=== PATIENT | female | born 1980 | race Caucasian/White ===

== ENCOUNTER 2022-02-01 14:02 | Emergency (ER) | payer OTHER ==
[~2022-02-01] VITALS: Ht 160 cm; Wt 95.7 kg
[2022-02-01] MEDS ORDERED: SYNTHROID75 MCG PO (14:41)
== END 2022-02-01 22:37 | disposition home or self-care (01) ==
LOC: ER 14:02
DX: O20.8 Other hemorrhage in early pregnancy (principal); O34.11 Maternal care for benign tumor of corpus uteri, first trimester; O99.019 Anemia complicating pregnancy, unspecified trimester; Z3A.01 Less than 8 weeks gestation of pregnancy; D25.9 Leiomyoma of uterus, unspecified; Z88.6 Allergy status to analgesic agent; Z91.013 Allergy to seafood

== ENCOUNTER 2022-11-07 12:45 | Inpatient (IN) | payer OTHER ==
[~2022-11-07] VITALS: Ht 170.2 cm; Wt 77.1 kg
[~2022-11-07 12:45] MED LIST: SYNTHROID75 MCG PO
== END 2022-11-09 22:34 | disposition home or self-care (01) | DRG 812 ==
LOC: ER 12:45 → SEC-K 18:10 → MEDJ 18:10
PROVIDERS: ADMIT Internal Medicine; ATTEND Internal Medicine
PROC: 30233N1 Transfusion of Nonautologous Red Blood Cells into Peripheral Vein, Percutaneous Approach (ICD-10-PCS; principal; 2022-11-08)
DX: D50.0 Iron deficiency anemia secondary to blood loss (chronic) (principal); N93.8 Other specified abnormal uterine and vaginal bleeding; R53.1 Weakness

== ENCOUNTER 2023-10-02 11:49 | Inpatient (IN) | payer OTHER ==
[~2023-10-02] VITALS: Ht 160 cm; Wt 95.3 kg
[2023-10-02 15:30] LABS: HEMATOCRIT 24.6 % (36.0-45.00); MEAN CORPUSCULAR HGB CONC 29.7 g/dl (32.0-36.0); PLATELET COUNT 449 K/uL (150-450); RED BLOOD COUNT 4.29 M/uL (4.00-6.00)
[2023-10-02 15:39] LABS: HEMOGLOBIN 7.3 g/dL (12.0-15.00); MEAN CELL VOLUME 57.2 fL (80.00-100.00); RED CELL DISTRIBUTION WIDTH 20.9 % (11.5-14.5)
[2023-10-02 15:42] LABS: PARTIAL THROMBOPLASTIN TIME 27.1 SECONDS (22.0-34.0); PROTHROMBIN TIME 10.5 SECONDS (9.0-11.5)
[2023-10-02 15:48] LABS: ALBUMIN 3.9 gm/dL (3.4-5.0); BILIRUBIN TOTAL 0.36 mg/dL (0.3-1.2); CALCIUM 9.5 mg/dL (8.5-10.1); CREATININE SERUM 0.63 mg/dL (0.55-1.02); GFR 102.19; GLOBULINA 4.1 G/DL (2.4-3.5); POTASSIUM 3.46 mEq/L (3.5-5.1)
[2023-10-02 21:00] LABS: PH,URINE 5.5 (5.0-8.0); URINE APPEARANCE Clear; URINE BILIRRUBIN Negative (NEGATIVE); URINE BLOOD Negative; URINE COLOR Yellow; URINE GLUCOSE Negative (NEGATIVE); URINE LEUKOCYTE Negative; URINE NITRATE Negative; URINE PROTEIN Negative (NEGATIVE); URINE UROBILINOGEN 0.2 E.U./dl
[2023-10-02 21:01] LABS: URINE BACTERIA 837.7 uL (0.0-1933); URINE EPITHELIAL CELLS 23.9 uL (0.0-38.8); URINE RBC 3.5 uL (0.0-20.8)
[2023-10-04 06:21] LABS: HEMATOCRIT 30.2 % (36.0-45.00); MEAN CORPUSCULAR HGB CONC 30.8 g/dl (32.0-36.0); PLATELET COUNT 388 K/uL (150-450); RED BLOOD COUNT 4.73 M/uL (4.00-6.00); RED CELL DISTRIBUTION WIDTH 24.3 % (11.5-14.5)
[2023-10-04 06:56] LABS: MEAN CELL VOLUME 63.8 fL (80.00-100.00); MEAN CORPUSCULAR HEMOGLOBIN 19.6 pg (27.00-32.0)
[2023-10-04 06:57] LABS: HEMOGLOBIN 9.3 g/dL (12.0-15.00)
== END 2023-10-04 10:30 | disposition home or self-care (01) | DRG 812 ==
LOC: ER 11:50 → MEDI 19:09
PROVIDERS: General Practice; ADMIT Internal Medicine; ATTEND Internal Medicine
PROC: 30233N1 Transfusion of Nonautologous Red Blood Cells into Peripheral Vein, Percutaneous Approach (ICD-10-PCS; principal; 2023-10-03)
DX: D64.9 Anemia, unspecified (principal); N93.9 Abnormal uterine and vaginal bleeding, unspecified; D25.9 Leiomyoma of uterus, unspecified

== ENCOUNTER 2025-01-20 14:37 | Inpatient (IN) | payer OTHER ==
[~2025-01-20] VITALS: Ht 99.1 cm; Wt 102.1 kg
--- NOTE | 2025-01-20 16:22 | NUR ---
PACIENTE ALERTA Y ORIENTA X3 LA MISMA REFIERE TENER LA HEMOBLOBINA 6.9 .S/V ESTABLE DENTRO DE SUAREZ CONDICION.PACIENTE EN ESPRA DE EVALUACION MEDICA.
[2025-01-20] MEDS ORDERED: 0.9 % SODIUM CHLORIDE 1,000 ML IV SCH ×2 (17:00→20:45)
[2025-01-20 18:52] LABS: BASO % 0.6 % (0.1-1.2); EOS # 0.32 (0.04-0.54); EOS % 3.9 % (0.7-7.0); LYMPH # 2.43 (1.18-3.74); LYMPH % 29.5 % (19.3-53.1); MEAN CORPUSCULAR HEMOGLOBIN 15.7 pg (25.6-32.2); MONO # 0.44 (0.24-0.82); MONO % 5.3 % (4.7-12.5); NEUT # 4.95 (1.56-6.13); NEUT % 60.2 % (34.0-71.1); RED BLOOD COUNT 4.21 M/uL (3.93-5.22)
--- NOTE | 2025-01-20 18:57 | NUR ---
SE EDUCA A PTE SOBRE TX MEDICO, SE TANA MUESTRAS DE LABORATORIO UTILIZANDO MEDIDAS ASEPTICAS. SE COLCOA H/L FAREED DE EDEMA. SE COLOCA IV FLUIDS A PTE JULIUS ORDEN MEDICA. PTE EN ESPERA DE CONSULTA CON MEDICINA INTERNA.
[2025-01-20 19:02] LABS: HEMATOCRIT 23.9 % (34.1-44.9); HEMOGLOBIN 6.6 g/dL (11.2-15.7)
[2025-01-20 19:13] LABS: PARTIAL THROMBOPLASTIN TIME 25.4 SECONDS (22.0-34.0); PROTHROMBIN TIME 10.9 SECONDS (9.0-11.5)
[2025-01-20 19:16] LABS: URINE APPEARANCE Turbid; URINE BILIRRUBIN Small (NEGATIVE); URINE BLOOD Moderate; URINE COLOR Red; URINE GLUCOSE Negative (NEGATIVE); URINE KETONE Negative (NEGATIVE); URINE LEUKOCYTE Moderate; URINE NITRATE Positive; URINE UROBILINOGEN 0.2 E.U./dl
[2025-01-20 19:19] LABS: ALBUMIN 3.4 gm/dL (3.4-5.0); BILIRUBIN TOTAL 0.26 mg/dL (0.3-1.2); CREATININE SERUM 0.64 mg/dL (0.55-1.02); GFR 99.9; POTASSIUM 3.71 mEq/L (3.5-5.1); TOTAL PROTEIN 7.4 gm/dL (6.4-8.2)
[2025-01-20 19:20] LABS: URINE EPITHELIAL CELLS 19.6 uL (0.0-38.8); URINE WBC 906.4 uL (0.0-23.2)
--- NOTE | 2025-01-20 19:24 | NUR ---
SE REQUIZAN 3 UNIDADES DE PRBC A PTE JULIUS ORDEN MEDICA A LAS 7PM. SE ENVIAN TUBOS PILOTOS A LABORATORIO, PTE FIRMA AUTORIZACION DE TRANSFUSION.
[2025-01-20 19:29] LABS: PLATELET COUNT 496 K/uL (163-369)
[2025-01-20 19:46] LABS: PH,URINE 6.5 (5.0-8.0); URINE BACTERIA > 9821.5 uL (0.0-1933); URINE PROTEIN 100 (NEGATIVE); URINE RBC > 10558.9 uL (0.0-20.8)
[2025-01-20] MEDS ORDERED: FAMOTIDINE/PF 20 MG in 0.9 % SODIUM CHLORIDE 8 ML IV PUSH SCH (20:40)
[2025-01-20] MEDS ORDERED: ESTROGENS, CONJUGATED 25 MG VIAL IV ONE (20:45)
[2025-01-20] MEDS ORDERED: ACETAMINOPHEN 500 MG GEL..CAP PO PRN (20:45)
[2025-01-20] MEDS ORDERED: ONDANSETRON HCL 4 MG in 0.9 % SODIUM CHLORIDE 50 ML IV PRN (20:45)
[2025-01-21] MEDS ORDERED: FAMOTIDINE/PF 20 MG/2 ML VIAL ONE (02:54)
[2025-01-21] MEDS ORDERED: DIPHENHYDRAMINE HCL 50 MG/ML VIAL 1ML ONE ×2 (05:10→11:17)
[2025-01-21] MEDS ORDERED: METHYLPREDNISOLONE SOD SUCC 125 MG VIAL ONE (05:11)
[2025-01-21] MEDS ORDERED: FUROsemide 20 MG/2 ML VIAL IV SCH (05:15)
[2025-01-21] MEDS ORDERED: METHYLPREDNISOLONE SOD SUCC 125 MG VIAL IV ONE (05:15)
[2025-01-21] MEDS ORDERED: DIPHENHYDRAMINE HCL 50 MG/ML VIAL 1ML IV ONE (05:15)
[2025-01-21] MEDS ORDERED: LEVOTHYROXINE SODIUM 75 MCG TABLET PO SCH (06:00)
[2025-01-21] MEDS ORDERED: FUROsemide 20 MG/2 ML VIAL ONE (09:01)
[2025-01-21] MEDS ORDERED: DIPHENHYDRAMINE HCL 50 MG/ML VIAL 1ML IV STA (10:59)
[2025-01-21] MEDS ORDERED: METHYLPREDNISOLONE SOD SUCC 40 MG VIAL IV STA (11:00)
[2025-01-21] MEDS ORDERED: ACETAMINOPHEN 500 MG GEL..CAP PO ONE (11:18)
[2025-01-21] MEDS ORDERED: METHYLPREDNISOLONE SOD SUCC 40 MG VIAL ONE (11:18)
[2025-01-21 17:11] VITALS: BP 115/73; O2SAT 100
[2025-01-21 17:15] VITALS: O2SAT 94
[2025-01-21 21:00] VITALS: O2SAT 94
[2025-01-21] MEDS ORDERED: METHYLPREDNISOLONE SOD SUCC 40 MG VIAL IV SCH (21:15)
[2025-01-21] MEDS ORDERED: DIPHENHYDRAMINE HCL 50 MG/ML VIAL 1ML IV SCH (21:15)
[2025-01-22] VITALS (7 sets, daily range): BP systolic 116–125; BP diastolic 71–77; O2SAT 93–100
[2025-01-22 02:32] LABS: BASO % 0.1 % (0.1-1.2); HEMATOCRIT 31.1 % (34.1-44.9); LYMPH % 6.7 % (19.3-53.1); MEAN CORPUSCULAR HEMOGLOBIN 18.4 pg (25.6-32.2); MONO # 0.54 (0.24-0.82); MONO % 3.6 % (4.7-12.5); NEUT # 13.24 (1.56-6.13); NEUT % 89.1 % (34.0-71.1)
[2025-01-22 02:41] LABS: HEMOGLOBIN 9.2 g/dL (11.2-15.7); PLATELET COUNT 501 K/uL (163-369); RED CELL DISTRIBUTION WIDTH 26.5 % (11.6-14.4)
[2025-01-22] MEDS ORDERED: FAMOTIDINE/PF 20 MG/2 ML VIAL ONE (08:44)
[2025-01-22] MEDS ORDERED: ONDANSETRON HCL 2 MG/ML VIAL ONE (08:44)
[2025-01-22] MEDS ORDERED: TRIVORA-28 TAB1 EACH PO (09:28)
[2025-01-22] MEDS ORDERED: METHYLPREDNISOLONE SOD SUCC 40 MG VIAL IV PRN (09:45)
[2025-01-22] MEDS ORDERED: Cyanocobalamin/Mecobalamin 1 TAB.SL SL NR (10:45)
[2025-01-22] MEDS ORDERED: SOD FERRIC GLUC COMPLX/SUCROSE 62.5 MG/5 ML AMPUL IV SCH (12:00)
[2025-01-22] MEDS ORDERED: METHYLPREDNISOLONE SOD SUCC 125 MG VIAL IV SCH (12:00)
[2025-01-22] MEDS ORDERED: PANTOPRAZOLE SODIUM 40 MG TABLET.DR PO SCH (21:00)
[2025-01-23] VITALS (7 sets, daily range): BP systolic 132–137; BP diastolic 73–82; O2SAT 90–98
[2025-01-23] MEDS ORDERED: Cyanocobalamin/Mecobalamin 1 TAB.SL SL SCH (09:00)
[2025-01-23] MEDS ORDERED: FF) NORGESTREL-ETHINYL ESTRADIOL TAB PO SCH (09:00)
[2025-01-23 13:50] LABS: BASO % 0.1 % (0.1-1.2); HEMATOCRIT 35.8 % (34.1-44.9); HEMOGLOBIN 10.7 g/dL (11.2-15.7); LYMPH # 1.86 (1.18-3.74); LYMPH % 9.2 % (19.3-53.1); MEAN CORPUSCULAR HEMOGLOBIN 19.5 pg (25.6-32.2); MONO # 1.42 (0.24-0.82); NEUT # 16.76 (1.56-6.13); NEUT % 82.6 % (34.0-71.1); PLATELET COUNT 501 K/uL (163-369); RED BLOOD COUNT 5.48 M/uL (3.93-5.22)
[2025-01-23 13:51] LABS: RED CELL DISTRIBUTION WIDTH 28.6 % (11.6-14.4)
[2025-01-23 14:41] LABS: CALCIUM 9.5 mg/dL (8.5-10.1); CREATININE SERUM 0.67 mg/dL (0.55-1.02); GFR 94.76; MAGNESIUM 2.1 mg/dL (1.8-2.4); PHOSPHOROUS 3.1 mg/dL (2.5-4.9); POTASSIUM 4.48 mEq/L (3.5-5.1)
[2025-01-24] VITALS (9 sets, daily range): BP systolic 112–143; BP diastolic 64–87; O2SAT 90–96
[2025-01-24] MEDS ORDERED: EPOETIN ALFA-EPBX 10,000 UNIT/ML VIAL (Retacrit) SUBCUTANEO SCH (09:00)
[2025-01-24] MEDS ORDERED: METHYLPREDNISOLONE SOD SUCC 125 MG in 0.9 % SODIUM CHLORIDE 100 ML IV PRN (21:00)
[2025-01-25] VITALS: O2SAT 96
[2025-01-25 01:04] LABS: URINE APPEARANCE Clear; URINE BILIRRUBIN Negative (NEGATIVE); URINE BLOOD Moderate; URINE COLOR Yellow; URINE GLUCOSE Negative (NEGATIVE); URINE KETONE Negative (NEGATIVE); URINE LEUKOCYTE Negative; URINE NITRATE Negative; URINE PROTEIN Negative (NEGATIVE)
[2025-01-25 01:08] LABS: URINE BACTERIA 832.3 uL (0.0-1933); URINE EPITHELIAL CELLS 11.2 uL (0.0-38.8); URINE RBC 4.7 uL (0.0-20.8); URINE WBC 5.5 uL (0.0-23.2)
[2025-01-25 01:49] VITALS: BP 133/79; O2SAT 93
[2025-01-25 05:44] VITALS: O2SAT 94
[2025-01-25 07:50] LABS: ALBUMIN 3.4 gm/dL (3.4-5.0); BILIRUBIN TOTAL 0.43 mg/dL (0.3-1.2); CALCIUM 9.2 mg/dL (8.5-10.1); CREATININE SERUM 0.69 mg/dL (0.55-1.02); GFR 91.59; GLOBULINA 3.7 G/DL (2.4-3.5); MAGNESIUM 2.2 mg/dL (1.8-2.4); PHOSPHOROUS 3.9 mg/dL (2.5-4.9); POTASSIUM 4.39 mEq/L (3.5-5.1); TOTAL PROTEIN 7.1 gm/dL (6.4-8.2)
[2025-01-25 08:39] VITALS: BP 133/82; O2SAT 94
[2025-01-25 08:57] VITALS: O2SAT 95
[2025-01-25 12:19] VITALS: O2SAT 95
[2025-01-25 14:05] LABS: BASO % 0.1 % (0.1-1.2); EOS # 0.01 (0.04-0.54); EOS % 0.1 % (0.7-7.0); HEMATOCRIT 38.2 % (34.1-44.9); HEMOGLOBIN 11.5 g/dL (11.2-15.7); LYMPH # 3.97 (1.18-3.74); LYMPH % 24.3 % (19.3-53.1); MEAN CORPUSCULAR HEMOGLOBIN 20.2 pg (25.6-32.2); MONO # 1.29 (0.24-0.82); MONO % 7.9 % (4.7-12.5); NEUT # 10.82 (1.56-6.13); RED BLOOD COUNT 5.69 M/uL (3.93-5.22)
[2025-01-25 14:47] LABS: RED CELL DISTRIBUTION WIDTH 30.8 % (11.6-14.4)
[2025-01-25 14:49] LABS: PLATELET COUNT 449 K/uL (163-369)
[2025-01-25] MEDS ORDERED: INTEGRA PLUS C1 EACH PO (15:23)
[2025-01-25] MEDS ORDERED: SYNTHROID75 MCG PO (15:23)
[2025-01-26] MEDS ORDERED: FF) NORGESTREL-ETHINYL ESTRADIOL TAB PO SCH (09:00)
== END 2025-01-25 15:37 | disposition home or self-care (01) | DRG 812 ==
LOC: ER 14:37 → MEDJ 21:12 → SEC-K 21:12 → MEDI 01-21 11:32
PROVIDERS: General Practice; Internal Medicine; ADMIT Internal Medicine; ATTEND Internal Medicine
PROC: BU4CZZZ Ultrasonography of Uterus and Ovaries (ICD-10-PCS; principal; 2025-01-20)
PROC: 4A12X4Z Monitoring of Cardiac Electrical Activity, External Approach (ICD-10-PCS; 2025-01-21)
PROC: 30233N1 Transfusion of Nonautologous Red Blood Cells into Peripheral Vein, Percutaneous Approach (ICD-10-PCS; 2025-01-21)
DX: D64.9 Anemia, unspecified (principal); D25.1 Intramural leiomyoma of uterus; E03.9 Hypothyroidism, unspecified; N93.9 Abnormal uterine and vaginal bleeding, unspecified; D63.8 Anemia in other chronic diseases classified elsewhere

== ENCOUNTER 2025-04-15 11:15 | Inpatient (IN) | payer OTHER ==
[~2025-04-15] VITALS: Ht 91.4 cm; Wt 95.7 kg
[~2025-04-15 11:15] MED LIST changes: +INTEGRA PLUS C1 EACH PO; +TRIVORA-28 TAB1 EACH PO
[2025-04-15 12:50] LABS: INR 1.05
[2025-04-15 13:26] LABS: RH POSITIVE
[2025-04-17] MEDS ORDERED: POVIDONE-IODINE 118 ML BOTT TOP ONE (09:21)
[2025-04-17] MEDS ORDERED: CEFAZOLIN SODIUM 1,000 MG VIAL ONE ×2 (09:21→16:49)
[2025-04-17] MEDS ORDERED: METRONIDAZOLE/SODIUM CHLORIDE 500 MG/100 ML PIGGYBACK IV ONE (09:21)
[2025-04-17] MEDS ORDERED: CHLORHEXIDINE GLUCONATE 120 ML BOTTLE TOP ONE (09:22)
[2025-04-17] MEDS ORDERED: THROMBIN,HU/FIBRINOGEN/CALCIUM 10 ML SYRINGE TOP ONE (11:27)
[2025-04-17] MEDS ORDERED: SUGAMMADEX SODIUM 200 MG/2 ML VIAL IV ONE (11:39)
[2025-04-17] MEDS ORDERED: OxyCODONE HCL 5 MG TABLET (ROXICODONE) PO PRN (12:00)
[2025-04-17] MEDS ORDERED: ACETAMINOPHEN 500 MG GEL..CAP PO SCH (12:00)
[2025-04-17] MEDS ORDERED: RINGERS SOLUTION,LACTATED 1,000 ML IV SCH (12:00)
[2025-04-17] MEDS ORDERED: MORPHINE SULFATE 4 MG/ML CARTRIDGE IV PRN (12:00)
[2025-04-17] MEDS ORDERED: MORPHINE SULFATE 4 MG/ML VIAL IV ONE ×2 (13:45→14:30)
[2025-04-17 15:13] LABS: BASO % 0.3 % (0.1-1.2); EOS # 0.01 (0.04-0.54); EOS % 0.1 % (0.7-7.0); LYMPH # 1.09 (1.18-3.74); LYMPH % 7.3 % (19.3-53.1); MEAN PLATELET VOLUME 9.10 fl (9.4-12.4); MONO # 0.64 (0.24-0.82); MONO % 4.3 % (4.7-12.5); NEUT # 13.17 (1.56-6.13); NEUT % 87.5 % (34.0-71.1); RED CELL DISTRIBUTION WIDTH 13.2 % (11.6-14.4)
[2025-04-17 15:33] LABS: BUN CREA RATIO 15.0 (7.0-25.0); CREATININE SERUM 0.48 mg/dL (0.55-1.02); GFR 139.23; GLUCOSE FASTING 131.0 mg/dL (65-100); OSMOLALITY SERUM 279.0 MOSM/KG (275-295)
[2025-04-17] MEDS ORDERED: GABAPENTIN 300 MG CAPSULE PO ONE (16:48)
[2025-04-17] MEDS ORDERED: METOCLOPRAMIDE HCL 5 MG/ML VIAL ONE (16:49)
[2025-04-17] MEDS ORDERED: ACETAMINOPHEN 500 MG GEL..CAP PO ONE (16:50)
[2025-04-17] MEDS ORDERED: METOCLOPRAMIDE HCL 5 MG/ML VIAL IV SCH (17:00)
[2025-04-17] MEDS ORDERED: GABAPENTIN 300 MG CAPSULE PO SCH (17:00)
[2025-04-17] MEDS ORDERED: CEFAZOLIN SODIUM 1,000 MG VIAL IV SCH (17:00)
[2025-04-17 19:34] VITALS: BP 112/76; O2SAT 98
[2025-04-17] MEDS ORDERED: FAMOTIDINE/PF 20 MG/2 ML VIAL IV PUSH SCH (21:00)
[2025-04-18 00:25] VITALS: BP 110/72; O2SAT 99
[2025-04-18 01:26] LABS: BASO % 0.2 % (0.1-1.2); EOS # 0.01 (0.04-0.54); EOS % 0.1 % (0.7-7.0); LYMPH # 1.53 (1.18-3.74); LYMPH % 14.8 % (19.3-53.1); MEAN PLATELET VOLUME 9.00 fl (9.4-12.4); MONO # 0.72 (0.24-0.82); MONO % 7.0 % (4.7-12.5); NEUT # 8.03 (1.56-6.13); NEUT % 77.6 % (34.0-71.1); RED CELL DISTRIBUTION WIDTH 13.1 % (11.6-14.4)
[2025-04-18 01:58] LABS: BUN CREA RATIO 17.0 (7.0-25.0); CREATININE SERUM 0.36 mg/dL (0.55-1.02); GFR 194.06; GLUCOSE FASTING 93.0 mg/dL (65-100); OSMOLALITY SERUM 277.0 MOSM/KG (275-295)
[2025-04-18 08:46] VITALS: BP 125/77
[2025-04-18] MEDS ORDERED: ENOXAPARIN SODIUM 40 MG/0.4 ML SYRINGE SUBCUTANEO SCH (09:00)
[2025-04-18 16:22] VITALS: BP 95/61; O2SAT 100
[2025-04-19 00:02] VITALS: BP 96/60; O2SAT 95
[2025-04-19 08:01] VITALS: BP 112/70; O2SAT 95
[2025-04-19] MEDS ORDERED: DOCUSATE SODIUM 100MG CAP PO SCH (09:02)
[2025-04-19] MEDS ORDERED: SIMETHICONE 125 MG CAPSULE PO SCH (09:03)
[2025-04-19] MEDS ORDERED: OxyCODONE HCL 5 MG TABLET (ROXICODONE) PO PRN (13:00)
[2025-04-19 17:58] VITALS: BP 104/71
[2025-04-20] VITALS: BP 117/76
[2025-04-20] MEDS ORDERED: LEVOTHYROXINE SODIUM 75 MCG TABLET PO SCH (06:00)
[2025-04-20 08:30] VITALS: BP 113/72; O2SAT 97
[2025-04-20] MEDS ORDERED: POLYETHYLENE GLYCOL 3350 17 GM BLIST.PACK PO SCH (12:00)
[2025-04-20 16:00] VITALS: BP 110/71; O2SAT 100
== END 2025-04-20 20:22 | disposition home or self-care (01) | DRG 743 ==
LOC: O/R 04-17 06:15 → SURH 04-17 11:15 → OB/GYN 04-17 15:24
PROVIDERS: Obstetrics & Gynecology; Surgery; ADMIT Obstetrics & Gynecology Gynecologic Oncology; ATTEND Obstetrics & Gynecology Gynecologic Oncology
PROC: 0UT00ZZ Resection of Right Ovary, Open Approach (ICD-10-PCS; 2025-04-17)
PROC: 0DNW0ZZ Release Peritoneum, Open Approach (ICD-10-PCS; 2025-04-17)
PROC: 0TN70ZZ Release Left Ureter, Open Approach (ICD-10-PCS; 2025-04-17)
PROC: 0TN60ZZ Release Right Ureter, Open Approach (ICD-10-PCS; 2025-04-17)
PROC: 0WQF0ZZ Repair Abdominal Wall, Open Approach (ICD-10-PCS; 2025-04-17)
PROC: 0UT90ZZ Resection of Uterus, Open Approach (ICD-10-PCS; principal; 2025-04-17 14:00)
PROC: 0UT50ZZ Resection of Right Fallopian Tube, Open Approach (ICD-10-PCS; 2025-04-17 14:00)
DX: D25.1 Intramural leiomyoma of uterus (principal); D25.2 Subserosal leiomyoma of uterus; D63.8 Anemia in other chronic diseases classified elsewhere; N93.9 Abnormal uterine and vaginal bleeding, unspecified; D27.0 Benign neoplasm of right ovary; N80.03 Adenomyosis of the uterus; K42.9 Umbilical hernia without obstruction or gangrene